=== PATIENT | female | born 1955 | race African-American/Black ===

== ENCOUNTER 2018-04-05 12:01 | Outpatient (CLI) | payer MEDICARE ==
--- NOTE | 2018-04-05 13:05 | RAD ---
LUMBOSACRAL SPINE THREE VIEWS: HISTORY: Extreme low back pain since yesterday. COMPARISON: CT lumbar spine from 11/19/2014. FINDINGS: Three views of the lumbosacral spine show normal height and alignment of the vertebral bodies and int ervertebral disks without fracture or subluxation. A small osteophytes is seen along the superior en dplate of L5. Mild posterior facet arthrosis is seen in the lower lumbosacral spine. Calcifications are seen in the aorta. There are also calcifications presumed over the left renal shadow, which cou ld represent left kidney stones. IMPRESSION: 1. Degenerative changes of the lumbar spine without acute osseous abnormality. 2. Likely left nephrolithiasis. POS: SUNSHINE
== END 2018-04-05 12:02 | disposition home or self-care (01) ==
LOC: NAV RAD 12:01
PROVIDERS: ATTEND Nurse Practitioner Family
DX: M47.26 Other spondylosis with radiculopathy, lumbar region (principal); N20.0 Calculus of kidney
CPT/HCPCS: 72100